=== PATIENT | male | born 1985 | race American Indian/Alaskan Native ===

== ENCOUNTER 2017-11-08 00:42 | Emergency (ER) | payer SELFPAY ==
[2017-11-08] MEDS ORDERED: NACL 0.9% 1000 ML 1,000 ML IV ONE (02:37)
[2017-11-08 03:04] LABS: Basophils % (Auto) 0.4 % (0.0-1.8); Eosinophils # (Auto) 0.1 K/mm3 (0.0-0.4); Eosinophils % (Auto) 0.7 % (0.0-4.3); Hematocrit 46.8 % (35.5-45.6); Hemoglobin 15.9 gm/dl (11.8-15.2); Lymphocytes # (Auto) 3.7 K/mm3 (1.2-5.4); Lymphocytes % (Auto) 41.1 % (13.4-35.0); Mean Corpuscular HGB Conc 34 % (32-34); Mean Corpuscular Hemoglobin 31 pg (28-32); Mean Corpuscular Volume 92 fl (84-94); Monocytes # (Auto) 0.8 K/mm3 (0.0-0.8); Monocytes % (Auto) 8.9 % (0.0-7.3); Platelet Count 274 K/mm3 (140-440); Red Blood Count 5.07 M/mm3 (3.65-5.03); Red Cell Distribution Width 13.1 % (13.2-15.2)
--- NOTE | 2017-11-08 03:19 | Emergency Department Report ---
HPI - General Chief Complaint: Syncope Time Seen by Provider: 11/08/17 02:16 - HPI HPI: The patient is a 32-year-old male presents for evaluation of lightheadedness and syncope. The patient states that he passed out while headache for the possibility hours prior to my evaluation. He states that he has experienced moderate to severe lightheadedness for the past one day, exacerbated with standing up or exertion, improved with lying down. He admits to poor fluid intake throughout the day, and feeling dry mouth. The patient denies fever, headache, neck pain, paresthesias, focal motor weakness, blurry vision, ear pain , tinnitus, chest pain, hemoptysis, dyspnea, abdominal pain, confusion or altered mental status, or recent URI or diarrhea. ED Past Medical Hx - Past Medical History Previous Medical History?: Yes Hx Asthma: Yes (childhood) - Social History Smoking Status: Heavy Tobacco Smoker Substance Use Type: None, Marijuana - Medications Home Medications: Home Medications Medication Instructions Recorded Confirmed Last Taken Type No Known Home Medications [No 11/08/17 11/08/17 Unknown History Reported Home Medications] ED Review of Systems ROS: Stated complaint: PASSED OUT Other details as noted in HPI Constitutional: reports dizziness denies: fever ENT: denies: throat or neck pain Respiratory: denies: cough, shortness of breath Cardiovascular: denies: chest pain Endocrine: denies unexplained weight loss or gain Gastrointestinal: denies: abdominal pain, nausea Genitourinary: denies: dysuria Musculoskeletal: denies: leg swelling Skin: denies: rash Neurological: denies: headache Hematological/Lymphatic: denies: easy bleeding or easy bruising Psych: denies sadness or hopelessness Physical Exam - Physical Exam Vital Signs: Vital Signs 11/08/17 11/08/17 00:49 02:09 Temperature 98.2 F 98.6 F Pulse Rate 81 71 Respiratory 20 18 Rate Blood Pressure 144/108 Blood Pressure 100/54 [Left] O2 Sat by Pulse 96 98 Oximetry Physical Exam: General: well-nourished, well-developed, no acute distress Head: Normocephalic, atraumatic Eyes: normal sclera ENT: Mucous membranes are pale and dry Neck: No neck stiffness, no cervical adenopathy Respiratory: Breath sounds equal bilaterally, no wheezing, rales, or rhonchi Cardio: S1 and S2 present, no murmurs, rubs, gallops, capillary refill is delayed Abdomen: Normoactive bowel sounds, soft abdomen, no rigidity, no guarding or rebound tenderness Chest WALL/Back: No tenderness to palpation of the chest wall, no CVA tenderness with percussion Musc: No pitting edema Skin: No rash Neuro: no facial drooping, normal speech Psych: Normal affect ED Course Vital Signs 11/08/17 11/08/17 00:49 02:09 Temperature 98.2 F 98.6 F Pulse Rate 81 71 Respiratory 20 18 Rate Blood Pressure 144/108 Blood Pressure 100/54 [Left] O2 Sat by Pulse 96 98 Oximetry ED Medical Decision Making - Lab Data Result diagrams: 11/08/17 02:54 - Medical Decision Making The patient was seen and examined by myself. The patient is placed on a vision specialist and continuous pulse ox. On initial evaluation, the patient was found to be in no distress. Evaluation orders were placed. EKG is unremarkable. Exam findings are consistent with dehydration and orthostatic syncope. Lab results revealed elevated RBC, hemoglobin, hematocrit, consistent with exam findings of dehydration. The patient declines IV fluid resuscitation. The patient was reevaluated and reported that their symptoms were markedly improved. The patient is stable for discharge with outpatient follow-up. The patient is given follow-up and return instructions. The patient expressed understanding and agreed with the plan. The patient is discharged in stable condition. Critical care attestation.: If time is entered above; I have spent that time in minutes in the direct care of this critically ill patient, excluding procedure time. ED Disposition Clinical Impression: Dehydration, Orthostatic syncope, Orthostatic dizziness Disposition: -01 TO HOME OR SELFCARE Is pt being admited?: No Does the pt Need Aspirin: No Condition: Stable Instructions: Syncope (ED), Dehydration (ED) Referrals: NICO BLACKWELL MD [Primary Care Provider] - 3-5 Days Time of Disposition:
[2017-11-08 03:21] VITALS: BP 100/54
[2017-11-08 03:31] LABS: BUN/Creatinine Ratio 8; Blood Urea Nitrogen 9 mg/dL (9-20); Hemolysis Index 93
== END 2017-11-08 03:37 | disposition home or self-care (01) ==
LOC: ED 00:42
DX: E86.0 Dehydration (principal); R55 Syncope and collapse; J45.909 Unspecified asthma, uncomplicated; F14.10 Cocaine abuse, uncomplicated; F17.200 Nicotine dependence, unspecified, uncomplicated
CPT/HCPCS: 36415; 80048; 85025; 93005; 93010; 99284